=== PATIENT | female | born 1985 | race African-American/Black ===

== ENCOUNTER 2017-01-08 10:49 | Emergency (ER) | payer MEDICAID ==
[~2017-01-08] VITALS: Ht 149.9 cm; Wt 51.0 kg
[~2017-01-08 10:49] MED LIST: IBUP-232 PO; MULTTAB67 PO; OXYC1TAB63 PO
[2017-01-08 10:51] VITALS: BP 140/87; PULSE 102; RESP 20; TEMP 98.4; O2SAT 97
--- NOTE | 2017-01-08 11:24 | PD ---
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 The patient states she gets frequent yeast infections. She attributes this to having large labia. So wears tight closing feels as though this may predispose her to having used infections. She's tried over-the- counter ointments and injectables however it has not helped. She denies any other symptoms. PFSH Past Medical History Hx Anticoagulant Therapy: No Cardiovascular Problems: No Chemotherapy: No Cerebrovascular Accident: No Diabetes: No Respiratory: No ?: Unknown LMP: 12/14/16 : 1 Para: 1 Past Surgical History Section: Yes (X1) Hysterectomy: No Social History Alcohol Use: No Tobacco Use: No Substance Use: No Allergies-Medications (Allergen,Severity, Reaction): Coded Allergies: Amoxicillin (Unverified Allergy, Severe, Hives, 03/09/14) Tetracycline (Unverified Allergy, Intermediate, 03/09/14) VAGINAL DISCHARGE Reported Meds & Prescriptions Reported Meds & Active Scripts Active Reported Multiple Vitamin 1 Tab 1 Tab PO DAILY Review of Systems Except as stated in HPI: all other systems reviewed are Neg General / Constitutional: No: Fever, Chills Gastrointestinal: No: Nausea, Vomiting, Abdominal Pain Genitourinary: Positive: Discharge ( with itching thick white discharge with itching), Other (thick white vaginal discharge), No: Pelvic Pain, Vaginal Bleeding Physical Exam Narrative GENERAL: Well-nourished, well-developed patient. SKIN: Warm and dry. HEAD: Normocephalic/atraumatic. EYES: No scleral icterus. No injection or drainage. NECK: Supple, trachea midline. GENITOURINARY: In the presence of the nurseMarielle. Normal external genitalia without lesions there is erythema noted in the labial folds. Vaginal vault without blood. There is white palafox discharge noted in the vaginal vault Cervical os was closed without drainage. No cervical motion tenderness. Data Data Last Documented VS Vital Signs Date Time Temp Pulse Resp B/P Pulse Ox O2 Delivery O2 Flow Rate FiO2 01/08/17 10:51 98.4 102 20 140/87 97 Room Air Orders Gc And Chlamydia Pcr (01/08/17 11:15) Wet Prep Profile (01/08/17 11:15) Labs Laboratory Tests Test 01/08/17 11:40 Clue Cells (Wet Prep) NONE SEEN Vaginal Trichomonas (Wet Prep) NONE SEEN Vaginal Yeast (Wet Prep) NONE SEEN Chlamydia trachomatis DNA NOT DETECTED (PCR) Neisseria gonorrhoeae DNA NOT DETECTED (PCR) MDM Medical Decision Making Medical Screen Exam Complete: Yes Emergency Medical Condition: Yes Differential Diagnosis Vaginal yeast infection versus bacterial vaginosis versus STD Narrative Course 31-year-old female presents with complaints of vaginal itching and white discharge. On exam patient had white tannish discharge that did not look as though it was yeast appearance. Wet prep shows no evidence of yeast. It was negative for trichomonas and negative for clue cells. GC and chlamydia were also negative. I discussed the findings with the patient told her that she very well may have itching but it does not appear to be due to yeast at this point. I did describe that she can have irritation from moisture but it's not always yeast. I've informed her that she should wear cotton panties. If she continues to have itching she can use a short course of [id number] cortisone cream. He is instructed to follow up with the PANTRY [employer] doctor if symptoms continue. Diagnosis Primary Impression: Vaginal itching Additional Instructions: Wear cotton panties and non-tight garments. Follow up with [employer] physician if symptoms persist. Disposition: 01 DISCHARGE HOME Condition: Stable Fred Cardona MD Jan 08, 2017 11:24
[2017-01-08 14:03] LABS: CHLAMYDIA PCR NOT DETECTED (NOT DETECT); NEISSERIA PCR NOT DETECTED (NOT DETECT)
[2017-04-07] MEDS ORDERED: PREN1CHW7 PO (15:29)
[2017-04-12] MEDS ORDERED: TERC.4%V VAGINAL (16:22)
== END 2017-01-08 14:45 | disposition home or self-care (01) ==
LOC: NEPC 10:49
DX: L29.8 Other pruritus (principal)
CPT/HCPCS: 87210; 87491; 87591; 99283

== ENCOUNTER 2017-10-17 08:55 | Inpatient (IN) | payer MEDICAID ==
[2017-10-17] VITALS (24 sets, daily range): BP systolic 115–135; BP diastolic 66–85; PULSE 77–99; RESP 16–22; TEMP 97.4–98.3; O2SAT 100
[~2017-10-17] VITALS: Ht 149.9 cm; Wt 70.0 kg
[~2017-10-17 08:55] MED LIST changes: -IBUP-232 PO; -OXYC1TAB63 PO; +PREN1CHW7 PO
[2017-10-17] MEDS ORDERED: LACTATED RINGER'S 1000 ML INJ 1,000 ML IV ONE ×2 (09:17→12:00)
[2017-10-17 09:45] LABS: AUTOMATED NEUTROPHIL # 3.9 TH/MM3 (1.8-7.7); BASOPHIL % 0.3 % (0.0-2.0); EOSINOPHIL # 0.1 TH/MM3 (0-0.4); EOSINOPHIL % 1.5 % (0.0-4.0); HEMATOCRIT 33.1 % (35.0-46.0); LYMPH % 21.4 % (9.0-44.0); LYMPHOCYTE # 1.3 TH/MM3 (1.0-4.8); MEAN CELL VOLUME 94.8 FL (80.0-100.0); MEAN CORPUSCULAR HEMOGLOBIN 34.3 PG (27.0-34.0); MEAN PLATELET VOLUME 7.4 FL (7.0-11.0); MONO % 13.2 % (0.0-8.0); MONOCYTE # 0.8 TH/MM3 (0-0.9); NEUT % 63.6 % (16.0-70.0); PLATELET COUNT 287 TH/MM3 (150-450); RED BLOOD COUNT 3.49 MIL/MM3 (4.00-5.30); RED CELL DISTRIBUTION WIDTH 13.6 % (11.6-17.2); WHITE BLOOD COUNT 6.1 TH/MM3 (4.0-11.0)
[2017-10-17] MEDS ORDERED: CLINDAMYCIN 900 MG/NS PREMIX 50 ML IV ONE (09:45)
[2017-10-17 09:48] LABS: MEAN CORPUSCULAR HGB CONC 36.2 % (32.0-36.0)
--- NOTE | 2017-10-17 09:50 | HHI.HP ---
History & Physical H&P Rafita méndez Unit Number: [id number] Date of : 1985 Patient Status: Registered Clinic Attending Doctor: Jcarlos Villatoro II, MD HPI HPI Chief Complaint Here for consult Date Seen: 10/17/17 Time Seen: 0900 Travel History International Travel<30 Days: No Contact w/Intl Traveler<30Days: No Known Affected Area: No History of Present Illness HPI Patient is a 32-year-old black female G P2 previous 2 for repeat C- section and tubal ligation , EDC 10/22/17 now 3 9 wks. patient had no complaint or problems baby is active. heart rate tracing reactive contractions. She has had gestational diabetes with this diet controlled. She requests a repeat section tubal ligation she has signed tubal papers and will bring those with her the hospital. She understands tubal ligation and that is considered permanent, and has a 1 in 300 failure rate Weeks Gestation: 3 9 Para: 2 : 3 History (Limited) History Past Medical History Narrative Medical Gestational diabetes with this diet controlled Obstetric History Obstetric History 2 C-sections in the past Past Surgical History Narrative Surgical Social History Alcohol Use: No Tobacco Use: No Substance Abuse: No Allergies-Medications Allergies-Medications (Allergen,Severity, Reaction): Coded Allergies: amoxicillin (Unverified Allergy, Severe, Hives, 09/26/17) doxycycline (Unverified Allergy, Intermediate, 09/26/17) VAGINAL DISCHARGE minocycline (Unverified Allergy, Intermediate, 09/26/17) VAGINAL DISCHARGE tigecycline (Unverified Allergy, Intermediate, 09/26/17) VAGINAL DISCHARGE Home Meds Active Scripts Vit W/ Ferric Phospha (Vitafol Gummies 3.33-0.333-34.8 mg) 1 Chw Chw, 3 TAB PO DAILY, #90 BOTTLE 11 Refills Prov:Patsy Joseph 04/07/17 Reported Medications Multiple Vitamin (Multiple Vitamin) 1 Tab, 1 TAB PO DAILY for Nutritional Supplement, TAB 0 Refills 09/01/16 ROS Review of Systems General / Constitutional: No: Fever, Weight Gain, Chills, Other Eyes: No: Diploplia, Blurred Vision, Visual changes, Pain, Photophobia HENT: No: Headaches, Vertigo, Lightheadedness Cardiovascular: No: Irregular Rhythm, Chest Pain or Discomfort, Palpitations, Tachycardia, Syncope, Varicosities, Edema, Cyanosis Respiratory: No: Cough, Short of Breath, Other Gastrointestinal: No: Nausea, Vomiting, Diarrhea Genitourinary: No: Decreased Urinary Output, Oliguria Musculoskeletal: No: Limited ROM, Weakness, Cramping, Edema, Pain Skin: No Rash, No Itching, No Dryness, No Lumps, No Change in Pigmentation, No Change in Nails, No Alopecia, No Lesions Neurologic: No: Weakness, Dizziness, Syncope, Focal Abnormalities, Coordination Problem, Headache, Slurred Speech, Seizures Psychiatric: No: Depression, Suicidal Ideations, Homicidal Ideation Endocrine: No: Heat Intolerance, Cold Intolerance, Polydipsia, Polyuria, Other Physical Exam Physical Exam Narrative GENERAL: Well-nourished, well-developed patient. SKIN: Warm and dry. HEAD: Normocephalic and atraumatic. EYES: No scleral icterus. No injection or drainage. ENT: No nasal drainage noted. Mucous membranes pink. Airway patent. NECK: Supple, trachea midline. No JVD. CARDIOVASCULAR: Regular rate and rhythm without murmurs, gallops, or rubs. RESPIRATORY: Breath sounds equal bilaterally. No accessory muscle use. BREASTS: Bilateral exam showed no masses , no retractions, no nipple discharge. ABDOMEN/GI: Abdomen soft, non-tender, bowel sounds present, no rebound, no guarding Gravid to [36-] weeks size Fundal Height: [36-] GENITOURINARY: External Genitalia: intact and normal in appearance BUS glands: [-] Cervix: [-post] Dilatation: [0-] Effacement: [-0] Station: [-3] Presentation: [vtx-] Membranes: [intact ] Uterine Contractions: [none-] FHT's: Category: [-1] Baseline: [133-] Reactive: [-yes] Variability: [mod-] Decels: [0-] EXTREMITIES: No cyanosis or edema. BACK: Nontender without obvious deformity. No CVA tenderness. NEUROLOGICAL: Awake and alert. Motor and sensory grossly within normal limits. Five out of 5 muscle strength in all muscle groups. Normal speech. Data Data [facility] MDM Interpretation(s) Patient is a 32-year-old black female previous 2 now for repeat and tubal ligation at 39 weeks which would be done on 10/17/17 Plan The patient returned on 10/17/17 for repeat tubal ligation. She is been educated as to what she needs today before surgery and on the day of her procedure. We'll plan to do a repeat tubal ligation 10:30 on the morning of the first Diagnosis: previous desires sterilization Disposition ADMIT for C section delivery Condition: Stable Jcarlos Villatoro II, MD 10/17/17 0900 Jcarlos Villatoro II, MD Oct 17, 2017 09:50
[2017-10-17 09:58] LABS: BILIRUBIN, URINE NEG (NEG); BLOOD, URINE NEG (NEG); GLUCOSE,URINE NEG (NEG); KETONE, URINE NEG (NEG); MUCUS URINE FEW /lpf (OCC); NITRITE,URINE NEG (NEG); SQUAMOUS EPITHELIAL CELL URINE 2 /hpf (0-5); URINE COLOR YELLOW (YELLW/STRAW); URINE LEUKOCYTE ESTERASE NEG (NEG)
[2017-10-17] MEDS ORDERED: LACTATED RINGER'S 1000 ML INJ 1,000 ML IV SCH ×2 (10:00→18:10)
[2017-10-17] MEDS ORDERED: ceFAZolin 2 GM PREMIX 50 ML IV SCH (10:30)
[2017-10-17] MEDS ORDERED: CITRIC ACID-SODIUM CITRATE LIQ 30 ML UDC PO SCH (11:00)
--- NOTE | 2017-10-17 11:35 | HHI.PR ---
FATBACK TRIMMER Note Note I saw and spoke with pt this am. Has been NPO since >midnight last evening. Desires BTL and understands it is permanent and irreversible. Reviewed risks of surgery. Consents signed. To OR. Yamila Bhatti MD Oct 17, 2017 11:35
[2017-10-17] MEDS ORDERED: MORPHINE SULFATE PF 5 MG/10 ML VIAL ONE (11:44)
[2017-10-17] MEDS ORDERED: EPIDURAL-DIPHENHYDRAMINE HCL 50 MG CAP PO PRN (12:00)
[2017-10-17] MEDS ORDERED: OXYTOCIN 10 UNIT/ML AMP IV ONE (12:00)
[2017-10-17] MEDS ORDERED: EPIDURAL-NALOXONE HCL 0.4 MG/ML AMP IV PUSH PRN (12:00)
[2017-10-17] MEDS ORDERED: ONDANSETRON HCL 4 MG/2 ML VIAL IV ONE (12:00)
[2017-10-17] MEDS ORDERED: EPIDURAL-NO SYSTEMIC NARCOTICS PRN (12:00)
[2017-10-17] MEDS ORDERED: EPIDURAL-DO NOT ADMINISTER ANTICOAGULANTS PRN (12:00)
[2017-10-17] MEDS ORDERED: EPIDURAL-DIPHENHYDRAMINE HCL 50 MG/ML VIAL IV PUSH PRN (12:00)
[2017-10-17] MEDS ORDERED: KETOROLAC TROMETHAMINE 60 MG/2 ML (IM) VIAL IM PRN (13:15)
[2017-10-17] MEDS ORDERED: DOCUSATE SODIUM 50 MG/SENNA 8.6 MG TAB PO PRN (13:15)
[2017-10-17] MEDS ORDERED: SIMETHICONE 80 MG CHEWABLE TAB PO PRN (13:15)
[2017-10-17] MEDS ORDERED: ACETAMINOPHEN 325 MG TAB PO PRN (13:15)
[2017-10-17] MEDS ORDERED: ONDANSETRON HCL 4 MG/2 ML VIAL IV PUSH PRN (13:15)
--- NOTE | 2017-10-17 13:20 | PD.OP ---
Operative Report Date of Surgery: Oct 17, 2017 Preoperative Diagnosis: 1. IUP @ 39.2wks 2. h/o CSx2 3. desires permanent sterilization Postoperative Diagnosis: same Procedure: 1. scar revision 2. rLTCS 3. tubal ligation via distal salpingectomies Anesthesia: spinal Surgeon: Yamila Bhatti Credit Card Control Clerk(s): tech Operation and Findings: Antibiotics: clindamycin within 1hr of incision DVT prophylaxis: SCDs were in place and active throughout the entire procedure EBL: 400cc IVF: 1000cc UOP: 100cc Drain(s): Garcia to straight drain Specimen(s): cord blood, placenta Findings: severely keloided scar, large uterine window with virtually no lower uterus, adhesions to bilateral tubes Complications: none Disposition: to PACU in stable condition Technique: The R/B/A were discussed with the pt, all questions answered, and consents signed. The pt was taken to the operating room where spinal anesthesia was found to be adequate. She was then prepped and draped in the normal sterile fashion in the dorsal supine position with leftward tilt. An incision was made below/above the keloid which was excised with the Bovie. The incision was then carried through to the underlying layer of fascia with the scalpel. The fascia was incised in the midline and the incision extended laterally with Krishnan scissors. The superior aspect of the fascial incision was grasped with Vee clamps, elevated, and the underlying rectus muscles dissected off bluntly and with Krishnan scissors. Attention was then turned to the inferior aspect of this incision which, in a similar fashion, was grasped, tented up with Vee clamps , and the rectus muscles dissected off bluntly and with Krishnan scissors. The rectus muscles were then in the midline, and the peritoneum identified and entered bluntly. The peritoneal incision was stretched with good visualization of the bladder. The bladder blade was inserted and the vesicouterine peritoneum identified, grasped with pick-ups, and entered sharply with Metzenbaum scissors. This incision was extended laterally and a bladder flap created digitally. The entire lower uterine segment was a large window. The bladder blade was then reinserted and the lower uterine segment incised in a transverse fashion with the scalpel. The uterine incision was stretched superiorly and inferiorly. The bladder blade was removed and the infant's head delivered atraumatically followed by the body. Delayed cord clamping ensued for 45sec while the was dried, suctioned, and stimulated. The cord was double clamped and cut and handed off to the waiting team. The placenta expelled with manual fundal massage. The uterus was exteriorized and cleared of all clots and debris. The uterine incision was repaired with 0- vicryl in a running, locked fashion. A second layer using 0-monocryl suture was used to obtain excellent hemostasis via embrication. Next, the left fallopian tube was identified and the distal portion was clamped with a Ewa and the segment excised with Metzenbaum scissors. The pedicle was ligated with two free ties of plain gut. Good hemostasis was noted. Attention was then turned to the R fallopian tube which was identified as above, grasped, clamped, and excised in a similar fashion. Good hemostasis was noted. The posterior cul-de-sac was suctioned and the uterus was returned to the abdomen. The gutters were cleared of all clots and debris. The peritoneum was reapproximated with 3-0 vicryl in a running fashion. The underneath fascia was inspected and found to be hemostatic. The fascia was closed with 0-vicryl in a running fashion. The subcutaneous tissue was irrigated with saline and made hemostatic with the Bovie. The subcutaneous layer was reapproximated with plain gut with simple interrupted stiches and a second layer in a running fashion to decrease tension on the skin and prevent future keloids. The skin was closed with 4-0 monocryl. Steristrips were placed and the incision dressed appropriately. The patient tolerated the procedure well. She was taken to the recovery room in stable condition. Sponge, lap, instrument, and needle counts were correct x3. Yamila Bhatti MD Oct 17, 2017 13:20
[2017-10-17] MEDS ORDERED: OXYTOCIN 30 UNITS-500ML PREMIX 500 ML IV ONE (14:00)
[2017-10-17] MEDS: IBUPROFEN 600 MG TAB PO PRN (20:07)
[2017-10-17] MEDS: oxyCODONE/ACETAMINOPHEN 5 MG/325 MG TAB PO PRN ×2 (22:17→23:32)
[2017-10-17] MEDS ORDERED: OXYTOCIN 30 UNITS-500ML PREMIX 500 ML IV PRN (23:15)
[2017-10-18 04:00] VITALS: BP 111/61; PULSE 91; RESP 18; TEMP 98.1
[2017-10-18] MEDS: oxyCODONE/ACETAMINOPHEN 5 MG/325 MG TAB PO PRN ×4 (04:41→20:43)
[2017-10-18] MEDS: IBUPROFEN 600 MG TAB PO PRN ×4 (04:44→22:42)
[2017-10-18 05:53] VITALS: RESP 16
--- NOTE | 2017-10-18 07:25 | HHI.OB ---
Subjective Post Operative Day: 1 Remarks Postoperative day # 1. AFVSS overnight. Incision not draining. Decreased lochia. Denies dysuria. No breast tenderness. She is feeding the baby via formula. Appetite good. No nausea or vomiting. Patient has not yet had a bowel movement. Ambulating well. Denies calf pain or shortness of breath. Otherwise, she is doing well this morning and has no other concerns. Objective Vitals/I&O Vital Signs Date Time Temp Pulse Resp B/P (MAP) Pulse Ox O2 Delivery O2 Flow Rate FiO2 10/18/17 05:53 16 10/18/17 04:00 98.1 91 18 111/61 (78) 10/17/17 23:30 94 18 117/66 (83) 10/17/17 23:30 98.3 10/17/17 20:00 98.2 94 18 120/71 (87) 10/17/17 14:43 97.5 77 16 124/85 (98) 10/17/17 14:00 81 18 135/66 (89) 100 10/17/17 14:00 97.4 10/17/17 13:45 84 19 119/79 (92) 100 10/17/17 13:30 89 19 123/77 (92) 100 10/17/17 13:15 121/77 (92) 10/17/17 13:15 97.7 94 22 100 10/17/17 10:40 98 10/17/17 10:35 92 10/17/17 10:30 93 10/17/17 10:25 95 10/17/17 10:20 91 10/17/17 10:10 93 10/17/17 10:05 94 10/17/17 10:00 97 10/17/17 09:55 95 10/17/17 09:50 95 10/17/17 09:45 96 10/17/17 09:40 97 10/17/17 09:35 97 10/17/17 09:30 99 10/17/17 09:25 98 10/17/17 09:23 99 115/77 (90) 10/17/17 09:20 97.5 18 Result Diagram: 10/17/17 0920 Objective Remarks GENERAL: Well-nourished, well-developed female. CARDIOVASCULAR: Regular rate and rhythm without murmurs, gallops, or rubs. RESPIRATORY: Breath sounds equal bilaterally. No accessory muscle use. ABDOMEN/GI: Abdomen soft, non-tender, bowel sounds present. Incision: Clean, dry and intact. Fundus: Firm, non-tender at umbilicus. GENITOURINARY: Light to moderate bleeding. EXTREMITIES: No cyanosis or edema, non-tender, without signs of DVT. Medications and IVs Current Medications Medications (Trade) Dose Ordered Sig/Ck Route Start Time Stop Time Status Last Admin (Bicitra Liq) 30 ml BURRING WHEEL OPERATOR PO 10/17/17 11:00 10/21/17 10:59 10/17/17 11:26 Lactated Ringer's 1,000 ml @ 100 mls/hr Q10H IV 10/17/17 18:10 10/18/17 14:09 10/17/17 19:47 Oxytocin 500 ml @ 100 mls/hr UNSCH X1 PRN IV 10/17/17 23:15 10/18/17 23:14 (Mylicon Chew) 80 mg QID PRN PO 10/17/17 13:15 (Tylenol) 650 mg Q6H PRN PO 10/17/17 13:15 (Motrin) 600 mg Q6H PRN PO 10/17/17 13:15 10/18/17 04:44 (Toradol Inj) 30 mg Q6H PRN IM 10/17/17 13:15 10/18/17 13:14 (Percocet 5-325 Mg) 1 tab Q4H PRN PO 10/17/17 13:15 10/18/17 04:41 (Percocet 5-325 Mg) 2 tab Q4H PRN PO 10/17/17 13:15 (Anais-Colace) 2 tab Q12H PRN PO 10/17/17 13:15 (M-M-R Ii Inj) 0.5 ml ONCE ONCE SQ 10/18/17 16:00 10/18/17 16:01 (Boostrix Inj) 0.5 ml ONCE ONCE IM 10/18/17 16:00 10/18/17 16:01 (Zofran Inj) 4 mg Q6H PRN IV PUSH 10/17/17 13:15 Miscellaneous Information NO SYSTEMIC NARCOTICS TO BE GIVEN FO... UNSCH PRN .XX 10/17/17 12:00 10/18/17 11:59 (Narcan Inj) 0.4 mg UNSCH PRN IV PUSH 10/17/17 12:00 10/18/17 11:59 (Benadryl Inj) 25 mg Q6H PRN IV PUSH 10/17/17 12:00 10/18/17 11:59 (Benadryl) 50 mg Q6H PRN PO 10/17/17 12:00 10/18/17 11:59 Miscellaneous Information ALL NURSING DEPARTMENTS UNSCH PRN .XX 10/17/17 12:00 10/18/17 11:59 Assessment/Plan Assessment and Plan 32 y/o female who is POD# 1 s/p repeat . -Continue routine care. -Percocet and Motrin PRN pain. -Encouraged OOB. Advised pelvic rest for 6 wks. Will need a f/u appt. in 1 wk for incision check. -Re: ctrl, she had bilateral tubal ligation. -Check post-op CBC -Anticipate discharge in 1 day. -GDM: diet controlled. F/U in one week, continue glucose monitoring if indicated. WDW Caryl Rodas MD R2 Oct 18, 2017 07:25
[2017-10-18 08:00] VITALS: BP 107/62; PULSE 101; RESP 18; TEMP 98.1
[2017-10-18 10:36] LABS: BASOPHIL % 0.2 % (0.0-2.0); EOSINOPHIL # 0.1 TH/MM3 (0-0.4); EOSINOPHIL % 0.7 % (0.0-4.0); HEMOGLOBIN 11.3 GM/DL (11.6-15.3); LYMPH % 14.1 % (9.0-44.0); LYMPHOCYTE # 1.2 TH/MM3 (1.0-4.8); MEAN CELL VOLUME 95.2 FL (80.0-100.0); MEAN CORPUSCULAR HEMOGLOBIN 33.6 PG (27.0-34.0); MEAN CORPUSCULAR HGB CONC 35.3 % (32.0-36.0); MONO % 15.4 % (0.0-8.0); MONOCYTE # 1.3 TH/MM3 (0-0.9); NEUT % 69.6 % (16.0-70.0); PLATELET COUNT 282 TH/MM3 (150-450); RED BLOOD COUNT 3.36 MIL/MM3 (4.00-5.30); RED CELL DISTRIBUTION WIDTH 13.8 % (11.6-17.2); WHITE BLOOD COUNT 8.6 TH/MM3 (4.0-11.0)
[2017-10-18 12:00] VITALS: BP 116/72; PULSE 86; RESP 18
[2017-10-18] MEDS ORDERED: MEASLES, MUMPS, RUBELLA VACCINE 0.5 ML VIAL SQ ONE (16:00)
[2017-10-18] MEDS ORDERED: DIPHTH/TETANUS/ACEL PERTUSSIS (BOOSTER) 0.5 ML VIAL/PFS IM ONE (16:00)
[2017-10-18 19:50] VITALS: BP 116/67; PULSE 98; RESP 17; TEMP 97.7
[2017-10-19] MEDS: oxyCODONE/ACETAMINOPHEN 5 MG/325 MG TAB PO PRN ×2 (02:50→06:41)
[2017-10-19] MEDS: IBUPROFEN 600 MG TAB PO PRN (06:41)
[2017-10-19] MEDS ORDERED: PERI PO (07:17)
[2017-10-19] MEDS ORDERED: OXYC1TAB63 PO (07:17)
--- NOTE | 2017-10-19 07:17 | HHI.DCPOC ---
Discharge Care Plan Diagnosis: (1) S/P repeat low transverse Report Symptoms to Your Doctor -Temperature above 100.5 degrees -Redness, of incision or excessive or foul smelling drainage -Unusual pain or calf pain -Increased vaginal bleeding -Painful or difficulty urinating -Feelings of extreme sadness or anxiety after 2 weeks Goals to Promote Your Health * To prevent worsening of your condition and complications * To maintain your health at the optimal level Directions to Meet Your Goals Take your medications as prescribed Follow your dietary instruction Follow activity as directed Ensure plenty of rest for recovery Drink fluids for hydration Keep your appointments as scheduled Take your immunizations and boosters as scheduled If your symptoms worsen call your PCP, if no PCP go to Urgent Care Center or Emergency Room Smoking is Dangerous to Your Health. Avoid second hand smoke Call the 24-hour crisis hotline for domestic abuse at Caryl Fry MD R2 Oct 19, 2017 07:17
[2017-10-19 08:00] VITALS: BP 121/79; PULSE 88; RESP 16; TEMP 98.1
[2017-10-24] MEDS ORDERED: IBUP1TAB7 PO (11:15)
== END 2017-10-19 14:23 | disposition home or self-care (01) | DRG 766 ==
LOC: H2EB 08:55 → UNDODISIN 14:51 → H1EA 14:53
PROVIDERS: ADMIT Obstetrics & Gynecology; ATTEND Obstetrics & Gynecology
PROC: 10D00Z1 Extraction of Products of Conception, Low, Open Approach (ICD-10-PCS; principal; 2017-10-17)
PROC: 0UB70ZZ Excision of Bilateral Fallopian Tubes, Open Approach (ICD-10-PCS; 2017-10-17)
PROC: 0HB7XZZ Excision of Abdomen Skin, External Approach (ICD-10-PCS; 2017-10-17)
DX: O34.219 Maternal care for unspecified type scar from previous cesarean delivery (principal); O24.420 Gestational diabetes mellitus in childbirth, diet controlled; O75.89 Other specified complications of labor and delivery; L91.0 Hypertrophic scar; Z37.0 Single live birth; Z3A.39 39 weeks gestation of pregnancy; Z30.2 Encounter for sterilization
CPT/HCPCS: 59025; 80307; 81001; 85025; 86850; 86900; 86901; 88302; 88307; 90715; J2274; J2405; J2590; J7120